=== PATIENT | male | born 1960 | race Caucasian/White ===

== ENCOUNTER 2021-11-04 02:03 | Emergency (ER) | payer OTHER, MEDICAID ==
[~2021-11-04] VITALS: Ht 193 cm; Wt 92.3 kg
[2021-11-04 02:15] VITALS: BP 123/81
[2021-11-04] MEDS ORDERED: terbinafine cream 30gm TP ONE (03:45)
[2021-11-04] MEDS ORDERED: ondansetron 4mg rapidly disintigrating tab PO ONE (03:45)
[2021-11-04] MEDS ORDERED: cephalexin 250mg capsule PO ONE (03:45)
[2021-11-04] MEDS ORDERED: ACET-1025 PO (03:50)
[2021-11-04] MEDS ORDERED: IBUP-1984 PO (03:50)
[2021-11-04] MEDS ORDERED: CEPH250T PO (03:50)
[2021-11-04] MEDS ORDERED: acetaminophen 325mg tablet PO ONE (03:50)
[2021-11-04] MEDS ORDERED: ibuprofen tablet 400 MG TABLET PO ONE (03:50)
[2021-11-04] MEDS ORDERED: TOLN28CR7 TOP (03:50)
== END 2021-11-04 05:13 | disposition home or self-care (01) ==
LOC: ER 02:04
DX: E11.621 Type 2 diabetes mellitus with foot ulcer (principal); B35.3 Tinea pedis
CPT/HCPCS: 73630; 99284; A6258; A6446

== ENCOUNTER 2022-06-09 15:28 | Emergency (ER) | payer OTHER, MEDICAID ==
[~2022-06-09] VITALS: Ht 190.5 cm; Wt 95.0 kg
[~2022-06-09 15:28] MED LIST: TOLN28CR7 TOP
[2022-06-09 16:07] VITALS: BP 120/75
[2022-06-09 18:12] LABS: BASOPHILS % (AUTO) 0.3 % (0-1); EOSINOPHILS # (AUTO) 0.1 X10'3 (0-0.9); HEMATOCRIT 38.6 % (42.0-52.0); HEMOGLOBIN 12.9 g/dl (14.0-17.9); LYMPHOCYTES # (AUTO) 1.3 X10'3 (1.1-4.8); LYMPHOCYTES % (AUTO) 12.9 % (21-51); MEAN CORPUSCULAR HEMOGLOBIN 30.6 PG (27.0-31.0); MEAN CORPUSCULAR HGB CONC 33.5 g/dL (33.0-36.5); MEAN CORPUSCULAR VOLUME 91.1 FL (78-98); MEAN PLATELET VOLUME 6.4 FL (7.4-10.4); MONOCYTES # (AUTO) 0.8 X10'3 (0-0.9); MONOCYTES % (AUTO) 8.3 % (2-12); NEUTROPHILS # (AUTO) 7.7 X10'3 (1.8-7.7); NEUTROPHILS % (AUTO) 77.5 % (42-75); PLATELET COUNT 355 X10'3 (140-440); RED BLOOD COUNT 4.24 X10'6 (4.70-6.10); RED CELL DISTRIBUTION WIDTH 15.5 % (11.5-14.5); WHITE BLOOD COUNT 9.9 X10'3 (4.5-11.0)
[2022-06-09 18:28] LABS: ALANINE AMINOTRANSFERASE 14 U/L (12-78); ALBUMIN/GLOBULIN RATIO 0.6 (1.1-1.5); ALKALINE PHOSPHATASE 96 IU/L (46-116); ANION GAP 5 (8-16); ASPARTATE AMINO TRANSFERASE 17 U/L (10-37); BILIRUBIN,TOTAL 0.2 MG/DL (0.1-1.0); BLOOD UREA NITROGEN 8 MG/DL (7-18); BUN/CREATININE RATIO 9.9 (5.4-32.0); CALCIUM 9.3 MG/DL (8.5-10.1); CHLORIDE 97 MMOL/L (99-107); CREATININE 0.81 MG/DL (0.60-1.10); GLUCOSE 209 MG/DL (70-104); POTASSIUM 4.4 MMOL/L (3.5-5.1); SODIUM 132 MMOL/L (135-145); TOTAL CARBON DIOXIDE 30.2 MMOL/L (24-32); TOTAL PROTEIN 7.8 G/DL (6.4-8.2); eGFR > 90 ML/MIN
[2022-06-09] MEDS ORDERED: DOXYCYCLINE 100MG CAPSULE PO STA (18:55)
[2022-06-09] MEDS ORDERED: DOXY-1 PO (19:01)
--- NOTE | 2022-06-09 19:36 | NUR ---
[facility] CONTACTED AT 1933 REGARDING PT. PARAS AT [facility] CONFIRMED THAT PT IS WELCOME AND THERE IS SPACE AVAILABLE FOR PT.
--- NOTE | 2022-06-09 19:47 | NUR ---
[facility] CONTACTED AT 194 FOR TRANSPORTATION TO [facility].
== END 2022-06-09 20:00 | disposition home or self-care (01) ==
LOC: ER 15:29
DX: E11.621 Type 2 diabetes mellitus with foot ulcer (principal); L97.529 Non-pressure chronic ulcer of other part of left foot with unspecified severity; I10 Essential (primary) hypertension; E78.00 Pure hypercholesterolemia, unspecified; Z56.0 Unemployment, unspecified
CPT/HCPCS: 36415; 73630; 80053; 83605; 84145; 85025; 87040; 93005; 99285; A6449